=== PATIENT | male | born 1945 | race Caucasian/White ===

== ENCOUNTER 2018-12-21 17:01 | Observation (INO) | payer MEDICARE, OTHER ==
[2018-12-21] MEDS ORDERED: Dicyclomine 10 MG Cap PO ONE (17:35)
[2018-12-21] MEDS ORDERED: Sodium Chloride 0.9% 10 ML Syringe FLUSH PRN (17:35)
[2018-12-21] MEDS ORDERED: Sodium Chloride 0.9% 2.5 ML Syringe FLUSH PRN (17:35)
[2018-12-21] MEDS ORDERED: Sodium Chloride 0.9% 1,000 ML IV ONE (17:35)
--- NOTE | 2018-12-21 17:40 | EDM.PDOC ---
ED HPI GENERAL MEDICAL PROBLEM - General Chief Complaint: Gastrointestinal Problem Stated Complaint: PASSING BLOOD Time Seen by Provider: 12/21/18 17:25 - History of Present Illness INITIAL COMMENTS - FREE TEXT/NARRATIVE: HISTORY AND PHYSICAL: History of present illness: The patient is a 73-year-old male with a history of hyperlipidemia hypertension and presents with 5 episodes of diarrhea that started approximately 4 hours ago. The patient says that he also has a history of prostate cancer which is in remission as well as a pacemaker and was placed on doxycycline 100 mg twice a day by his provider at home on December 15 for a URI. He says he's been doing well with that antibiotic and today he flew in to town and had a formed bowel movement which was somewhat hard and then subsequently had a soft mushy bowel movement and then and even softer bowel movement followed by 2 watery stools. Initially the bowel movements were normal in color and then on the last 2 watery stools there was pink blood seen. He has not been passing black or tarry stools and no blood frankly or blood clots. He has no blood in his underwear. He has no GI history and had a colonoscopy approximately 10 years ago that was normal. He has no history of hemorrhoids and he says that when he was having these bowel movements he was not having any abdominal pain nor any rectal or anal pain. He has no nausea vomiting fevers or chills no flank pain or urinary issues. He is concerned because he had an admission in the past due to diarrhea and did not want to get behind. He is not lightheaded or dizzy and has had no feelings like he is going to pass out but he says that in the past when he was admitted for the diarrhea he did have a syncopal event and he is scared that will happen again. He is eating and drinking normally Review of systems: As per history of present illness and below otherwise all systems reviewed and negative. Past medical history: As per history of present illness and as reviewed below otherwise noncontributory. Surgical history: As per history of present illness and as reviewed below otherwise noncontributory. Social history: No reported history of drug or alcohol abuse. Family history: As per history of present illness and as reviewed below otherwise noncontributory. Physical exam: General: Well-developed well-nourished man who is nontoxic and moves easily in the ED. Vital signs are noted by me HEENT: Atraumatic, normocephalic, negative for conjunctival pallor or scleral icterus, mucous membranes moist, throat clear, neck supple, nontender, trachea midline. Lungs: Clear to auscultation, breath sounds equal bilaterally, chest nontender. Heart: S1S2, regular, negative for clicks, rubs, or JVD. Abdomen: Soft, nondistended, nontender. Negative for masses or hepatosplenomegaly. Negative for costovertebral tenderness. Pelvis: Stable nontender. Genitourinary: Deferred. Rectal: There is some perianal erythema but no lesions or fissures no masses and on digital exam there is scant stool in the vault which is light brown and mucousy but is Hemoccult positive. Extremities: Atraumatic, negative for cords or calf pain. Neurovascular unremarkable. Neuro: Awake, alert, oriented. Cranial nerves II through XII unremarkable. Cerebellum unremarkable. Motor and sensory unremarkable throughout. Exam nonfocal. Diagnostics: CBC CMP amylase lipase magnesium level lactic acid stool for C. difficile and culture Therapeutics: IV fluids Bentyl Levaquin and Flagyl maintenance IV fluids 1840: As was discussed with Dr. Rosenthal who would like me to treat him as an infectious colitis with Levaquin and Flagyl and maintenance IV fluids. I discussed with the patient his testing results and my concerns and he is agreeable to an observation admission Impression: Diarrhea, mild dehydration, rule out colitis Definitive disposition and diagnosis as appropriate pending reevaluation and review of above. - Related Data Allergies Allergy/AdvReac Type Severity Reaction Status Date / Time sulfasalazine [Sulfasalazine] Allergy Rash Verified 12/21/18 17:16 Home Meds: Home Meds Cholecalciferol (Vitamin D3) [Vitamin D3] 5,000 unit PO DAILY 03/12/14 [History] Lisinopril [Prinivil] 40 mg PO DAILY 03/12/14 [History] Simvastatin [Zocor] 40 mg PO BEDTIME 03/12/14 [History] amLODIPine [Norvasc] 10 mg PO DAILY 03/12/14 [History] Ciprofloxacin HCl [Cipro] 500 mg PO BID #14 tablet 03/14/14 [Rx] Aspirin 81 mg PO ONCALL 02/22/15 [History] Clopidogrel [Plavix] 75 mg PO DAILY 02/22/15 [History] atorvaSTATin [Lipitor] 40 mg PO BEDTIME 02/22/15 [History] cloNIDine HCl [Clonidine HCl ER] 0.2 mg PO DAILY 02/22/15 [History] Benzonatate 100 mg PO 12/21/18 [History] Doxycycline Monohydrate 100 mg PO 12/21/18 [History] Past Medical History Cardiovascular History: Reports: High Cholesterol, Hypertension Other Cardiovascular History: 2 stents Respiratory History: Reports: None Genitourinary History: Reports: None Musculoskeletal History: Reports: None Neurological History: Reports: None Endocrine/Metabolic History: Reports: Diabetes, Type II Hematologic History: Reports: None Immunologic History: Reports: None Oncologic (Cancer) History: Reports: None Dermatologic History: Reports: None - Infectious Disease History Infectious Disease History: Reports: None - Past Surgical History Head Surgeries/Procedures: Reports: None GI Surgical History: Reports: Cholecystectomy Social & Family History - Family History Family Medical History: Noncontributory - Tobacco Use Smoking Status *Q: Never Smoker Second Hand Smoke Exposure: No - Caffeine Use Caffeine Use: Reports: None - Recreational Drug Use Recreational Drug Use: No ED ROS GENERAL - Review of Systems Review Of Systems: ROS reveals no pertinent complaints other than HPI. ED EXAM, GENERAL - Physical Exam Exam: See Below (see dictation) Course - Vital Signs Last Recorded V/S: Last Vital Signs Temp 36.6 C 12/21/18 17:27 Pulse 79 12/21/18 17:27 Resp 16 12/21/18 17:27 BP 125/62 12/21/18 17:27 Pulse Ox 93 L 12/21/18 17:27 - Orders/Labs/Meds Orders: Active Orders 24 hr Category Date Time Status Patient Status [ADT] Stat ADT 12/21/18 18:50 Ordered Cardiac Monitoring [RC] . DIRECTED Care 12/21/18 17:34 Active Oxygen Therapy, ED [RC] ASDIRECTED Care 12/21/18 17:34 Active Pulse Oximetry [RC] ASDIRECTED Care 12/21/18 17:34 Active CULTURE STOOL + CAMPY+SHIGATOX [RM] Stat Lab 12/21/18 17:45 Results Sodium Chloride 0.9% @ 125 MLS/HR (1,000ml) Med 12/21/18 19:00 Ordered Sodium Chloride 0.9% [Normal Saline] 1,000 ml IV ASDIRECTED Sodium Chloride 0.9% [Saline Flush] Med 12/21/18 17:35 Active 10 ml FLUSH ASDIRECTED PRN Sodium Chloride 0.9% [Saline Flush] Med 12/21/18 17:35 Active 2.5 ml FLUSH ASDIRECTED PRN metroNIDAZOLE/Normal Saline [Flagyl 500 MG in NS 100 ML Med 12/21/18 18:52 Ordered ] 500 mg Premix Bag 1 bag IV ONETIME Isolation [COMM] Stat Oth 12/21/18 17:35 Ordered Saline Lock Insert [OM.PC] Stat Ot 12/21/18 17:34 Ordered Medication Orders Sodium Chloride (Normal Saline) 1,000 mls @ 125 mls/hr IV ASDIRECTED JOHAN Metronidazole 500 mg/ Premix 100 mls @ 100 mls/hr IV ONETIME ONE Stop: 12/21/18 19:51 Sodium Chloride (Saline Flush) 10 ml FLUSH ASDIRECTED PRN PRN Reason: Keep Vein Open Last Admin: 12/21/18 17:43 Dose: 10 ml Sodium Chloride (Saline Flush) 2.5 ml FLUSH ASDIRECTED PRN PRN Reason: Keep Vein Open Last Admin: 12/21/18 17:43 Dose: 2.5 ml Labs: Laboratory Tests 12/21/18 12/21/18 12/21/18 Range/Units 17:20 17:20 17:20 WBC 15.23 H (4.0-11.0) K/uL RBC 5.17 (4.50-5.90) M/uL Hgb 14.3 (13.0-17.0) g/dL Hct 43.3 (38.0-50.0) % MCV 83.8 (80.0-98.0) fL MCH 27.7 (27.0-32.0) pg MCHC 33.0 (31.0-37.0) g/dL RDW Std Deviation 48.8 (28.0-62.0) fl RDW Coeff of Zandra 16 H (11.0-15.0) % Plt Count 253 (150-400) K/uL MPV 9.10 (7.40-12.00) fL Neut % (Auto) 86.9 H (48.0-80.0) % Lymph % (Auto) 7.6 L (16.0-40.0) % Holmes % (Auto) 4.9 (0.0-15.0) % Eos % (Auto) 0.5 (0.0-7.0) % Baso % (Auto) 0.1 (0.0-1.5) % Neut # (Auto) 13.2 H (1.4-5.7) K/uL Lymph # (Auto) 1.2 (0.6-2.4) K/uL Holmes # (Auto) 0.7 (0.0-0.8) K/uL Eos # (Auto) 0.1 (0.0-0.7) K/uL Baso # (Auto) 0.0 (0.0-0.1) K/uL Nucleated RBC % 0.0 /100WBC Nucleated RBCs # 0 K/uL Lactate 2.1 H (0.20-2.00) mmol/L Sodium 141 (136-148) mmol/L Potassium 4.5 (3.5-5.1) mmol/L Chloride 106 (98-107) mmol/L Carbon Dioxide 22.1 (21.0-32.0) mmol/L BUN 30 H (7.0-18.0) mg/dL Creatinine 1.6 H (0.8-1.3) mg/dL Est Cr Clr Drug Dosing TNP Estimated GFR (MDRD) 42.3 ml/min Glucose 177 H (74-106) mg/dL Calcium 9.3 (8.5-10.1) mg/dL Magnesium (1.8-2.4) mg/dL Total Bilirubin 0.7 (0.2-1.0) mg/dL AST 35 (15-37) IU/L ALT 56 (14-63) IU/L Alkaline Phosphatase 96 (46-116) U/L Total Protein 7.6 (6.4-8.2) g/dL Albumin 3.7 (3.4-5.0) g/dL Globulin 3.9 (2.6-4.0) g/dL Albumin/Globulin Ratio 0.9 (0.9-1.6) Amylase 80 (25-115) U/L Lipase 151 (73-393) U/L 12/21/18 Range/Units 17:20 WBC (4.0-11.0) K/uL RBC (4.50-5.90) M/uL Hgb (13.0-17.0) g/dL Hct (38.0-50.0) % MCV (80.0-98.0) fL MCH (27.0-32.0) pg MCHC (31.0-37.0) g/dL RDW Std Deviation (28.0-62.0) fl RDW Coeff of Zandra (11.0-15.0) % Plt Count (150-400) K/uL MPV (7.40-12.00) fL Neut % (Auto) (48.0-80.0) % Lymph % (Auto) (16.0-40.0) % Holmes % (Auto) (0.0-15.0) % Eos % (Auto) (0.0-7.0) % Baso % (Auto) (0.0-1.5) % Neut # (Auto) (1.4-5.7) K/uL Lymph # (Auto) (0.6-2.4) K/uL Holmes # (Auto) (0.0-0.8) K/uL Eos # (Auto) (0.0-0.7) K/uL Baso # (Auto) (0.0-0.1) K/uL Nucleated RBC % /100WBC Nucleated RBCs # K/uL Lactate (0.20-2.00) mmol/L Sodium (136-148) mmol/L Potassium (3.5-5.1) mmol/L Chloride (98-107) mmol/L Carbon Dioxide (21.0-32.0) mmol/L BUN (7.0-18.0) mg/dL Creatinine (0.8-1.3) mg/dL Est Cr Clr Drug Dosing Estimated GFR (MDRD) ml/min Glucose (74-106) mg/dL Calcium (8.5-10.1) mg/dL Magnesium 2.0 (1.8-2.4) mg/dL Total Bilirubin (0.2-1.0) mg/dL AST (15-37) IU/L ALT (14-63) IU/L Alkaline Phosphatase (46-116) U/L Total Protein (6.4-8.2) g/dL Albumin (3.4-5.0) g/dL Globulin (2.6-4.0) g/dL Albumin/Globulin Ratio (0.9-1.6) Amylase (25-115) U/L Lipase (73-393) U/L Meds: Medications Generic Name Dose Route Start Last Admin Trade Name Freq PRN Reason Stop Dose Admin Sodium Chloride 1,000 mls @ 125 mls/hr 12/21/18 19:00 Normal Saline IV ASDIRECTED JOHAN Metronidazole 500 mg/ Premix 100 mls @ 100 mls/hr 12/21/18 18:52 IV 12/21/18 19:51 ONETIME ONE Sodium Chloride 10 ml 12/21/18 17:35 12/21/18 17:43 Saline Flush FLUSH 10 ml ASDIRECTED PRN Administration Keep Vein Open Sodium Chloride 2.5 ml 12/21/18 17:35 12/21/18 17:43 Saline Flush FLUSH 2.5 ml ASDIRECTED PRN Administration Keep Vein Open Discontinued Medications Generic Name Dose Route Start Last Admin Trade Name Freq PRN Reason Stop Dose Admin Dicyclomine HCl 20 mg 12/21/18 17:35 12/21/18 17:48 Bentyl PO 12/21/18 17:36 20 mg ONETIME ONE Administration Sodium Chloride 1,000 mls @ 999 mls/hr 12/21/18 17:35 12/21/18 17:43 Normal Saline IV 12/21/18 18:35 999 mls/hr STAT ONE Administration Levofloxacin 500 mg 12/21/18 18:52 Levaquin PO 12/21/18 18:53 ONETIME ONE Departure - Departure Time of Disposition: 18:55 Disposition: Refer to Observation Condition: Good Clinical Impression: Diarrhea, Dehydration - Discharge Information Referrals: PCP,None [Primary Care Provider] - Forms: ED Department Discharge - My Orders Last 24 Hours: My Active Orders 12/21/18 17:34 Cardiac Monitoring [RC] . DIRECTED Oxygen Therapy, ED [RC] ASDIRECTED Pulse Oximetry [RC] ASDIRECTED Saline Lock Insert [OM.PC] Stat 12/21/18 17:35 Sodium Chloride 0.9% [Saline Flush] 10 ml FLUSH ASDIRECTED PRN Sodium Chloride 0.9% [Saline Flush] 2.5 ml FLUSH ASDIRECTED PRN Isolation [COMM] Stat 12/21/18 17:45 CULTURE STOOL + CAMPY+SHIGATOX [RM] Stat 12/21/18 18:50 Patient Status [ADT] Stat 12/21/18 18:52 metroNIDAZOLE/Normal Saline [Flagyl 500 MG in NS 100 ML] 500 mg Premix Bag 1 bag IV ONETIME 12/21/18 19:00 Sodium Chloride 0.9% @ 125 MLS/HR (1,000ml) Sodium Chloride 0.9% [Normal Saline ] 1,000 ml IV ASDIRECTED - Assessment/Plan Last 24 Hours: My Active Orders 12/21/18 17:34 Cardiac Monitoring [RC] . DIRECTED Oxygen Therapy, ED [RC] ASDIRECTED Pulse Oximetry [RC] ASDIRECTED Saline Lock Insert [OM.PC] Stat 12/21/18 17:35 Sodium Chloride 0.9% [Saline Flush] 10 ml FLUSH ASDIRECTED PRN Sodium Chloride 0.9% [Saline Flush] 2.5 ml FLUSH ASDIRECTED PRN Isolation [COMM] Stat 12/21/18 17:45 CULTURE STOOL + CAMPY+SHIGATOX [RM] Stat 12/21/18 18:50 Patient Status [ADT] Stat 12/21/18 18:52 metroNIDAZOLE/Normal Saline [Flagyl 500 MG in NS 100 ML] 500 mg Premix Bag 1 bag IV ONETIME 12/21/18 19:00 Sodium Chloride 0.9% @ 125 MLS/HR (1,000ml) Sodium Chloride 0.9% [Normal Saline ] 1,000 ml IV ASDIRECTED
[2018-12-21 18:17] LABS: CHLORIDE,CL 106 mmol/L (98-107); SODIUM,NA 141 mmol/L (136-148)
[2018-12-21] MEDS ORDERED: metroNIDAZOLE/Normal Saline 500 MG in Premix Bag 1 BAG IV ONE (18:52)
[2018-12-21] MEDS ORDERED: Levofloxacin 500 MG Tab PO ONE (18:52)
[2018-12-21] MEDS ORDERED: Sodium Chloride 0.9% 1,000 ML IV SCH (19:00)
[2018-12-21] MEDS: Sodium Chloride 0.9% 1,000 ML IV SCH (20:30)
[2018-12-21] MEDS ORDERED: oxyCODONE 5 MG Tab PO PRN (20:31)
[2018-12-21] MEDS ORDERED: Acetaminophen 325 MG Tab PO PRN (20:31)
[2018-12-22] MEDS: Sodium Chloride 0.9% 1,000 ML IV SCH (06:05)
--- NOTE | 2018-12-22 07:05 | PCM.HP ---
H&P History of Present Illness - General Date of Service: 12/22/18 Admit Problem/Dx: Admission Diagnosis/Problem Admission Diagnosis/Problem Diarrhea, dehydration Source of Information: Patient, RN Notes Reviewed - History of Present Illness Initial Comments - Free Text/Narative: The patient is a 73-year-old gentleman who had been admitted secondary to diarrhea and dehydration. The patient has traveled from [place] and had been on doxycycline. The patient says that he has had improvement in his diarrhea. The patient is essentially denied any nausea or vomiting. He normally lives in [place] and stays here for a couple of months out of the year. The patient has denied any abdominal pain. He's had no nausea vomiting to come previous. No fever or chills. In the emergency department the patient had a test that was negative for C. difficile colitis and Campylobacter. This history and physical will also count is the patient's discharge summary. The patient also feels like he can go home today. Onset of Symptoms: Reports: Sudden Duration of Symptoms: Reports: Hour(s): Location: Reports: Abdomen Improves with: Reports: None Worsens with: Reports: None Context: Reports: Sick Contact, Travel Associated Symptoms: Reports: No Other Symptoms - Related Data Allergies/Adverse Reactions: Allergies Allergy/AdvReac Type Severity Reaction Status Date / Time sulfasalazine [Sulfasalazine] Allergy Rash Verified 12/21/18 20:21 Home Medications: Home Meds Cholecalciferol (Vitamin D3) [Vitamin D3] 5,000 unit PO DAILY 03/12/14 [History] Lisinopril [Prinivil] 40 mg PO DAILY 03/12/14 [History] Simvastatin [Zocor] 40 mg PO DAILY 03/12/14 [History] amLODIPine [Norvasc] 10 mg PO DAILY 03/12/14 [History] Aspirin 81 mg PO DAILY 02/22/15 [History] cloNIDine HCl [Clonidine HCl ER] 0.2 mg PO DAILY 02/22/15 [History] Lactobac Cmb #3/Fos/Pantethine [Probiotic & Acidophilus] 1 each PO DAILY #30 capsule 12/22/18 [Rx] metroNIDAZOLE [Flagyl] 375 mg PO Q8H #15 capsule 12/22/18 [Rx] Past Medical History HEENT History: Reports: Cataract Cardiovascular History: Reports: High Cholesterol, Hypertension, Pacemaker, Stents Other Cardiovascular History: 2 stents Respiratory History: Reports: None Gastrointestinal History: Reports: Hiatal Hernia Genitourinary History: Reports: Prostate Disorder, Other (See Below) Other Genitourinary History: "seeds" implanted in prostate for cancer Musculoskeletal History: Reports: Arthritis, Gout Neurological History: Reports: None Psychiatric History: Reports: None Endocrine/Metabolic History: Reports: Diabetes, Type II Hematologic History: Reports: None Immunologic History: Reports: None Oncologic (Cancer) History: Reports: Prostate Dermatologic History: Reports: None - Infectious Disease History Infectious Disease History: Reports: None - Past Surgical History Head Surgeries/Procedures: Reports: None HEENT Surgical History: Reports: Cataract Surgery, Tonsillectomy Cardiovascular Surgical History: Reports: Coronary Artery Stent GI Surgical History: Reports: Cholecystectomy Musculoskeletal Surgical History: Reports: Knee Replacement Social & Family History - Family History Family Medical History: Noncontributory - Tobacco Use Smoking Status *Q: Never Smoker Second Hand Smoke Exposure: No - Caffeine Use Caffeine Use: Reports: None - Recreational Drug Use Recreational Drug Use: No - Living Situation & Occupation Living situation: Reports: , with Spouse Occupation: Retired H&P Review of Systems - Review of Systems: Review Of Systems: See Below General: Reports: No Symptoms HEENT: Reports: No Symptoms Pulmonary: Reports: No Symptoms Cardiovascular: Reports: No Symptoms Gastrointestinal: Reports: Diarrhea. Denies: Hematemesis, Hematochezia Genitourinary: Reports: No Symptoms Musculoskeletal: Reports: No Symptoms Skin: Reports: No Symptoms Psychiatric: Reports: No Symptoms Neurological: Reports: No Symptoms Hematologic/Lymphatic: Reports: No Symptoms Immunologic: Reports: No Symptoms Exam - Exam Exam: See Below - Vital Signs Vital Signs: Last Vital Signs Temp 36.3 C 12/22/18 03:45 Pulse 74 12/22/18 03:45 Resp 18 12/22/18 03:45 BP 174/70 H 12/22/18 03:45 Pulse Ox 98 12/22/18 03:45 Weight: 91.807 kg - Exam Quality Assessment: No: Supplemental Oxygen General: Alert, Oriented, Cooperative, Mild Distress HEENT: Conjunctiva Clear, EACs Clear, EOMI, Hearing Intact, Mucosa Moist & [place] , Nares Patent, Posterior Pharynx Clear, PERRLA Neck: Supple, Trachea Midline, 2 Lungs: Clear to Auscultation, Normal Respiratory Effort Cardiovascular: Regular Rate, Regular Rhythm GI/Abdominal Exam: Normal Bowel Sounds, Soft, Non-Tender, No Distention Rectal (Males) Exam: Deferred Back Exam: Normal Inspection, Full Range of Motion, NT Extremities: Normal Inspection, Normal Range of Motion, Non-Tender, No Pedal Edema Skin: Warm, Dry, Intact Neurological: Cranial Nerves Intact Neuro Extensive - Mental Status: Alert, Oriented x3, Normal Cognition Neuro Extensive - Motor, Sensory, Reflexes: CN II-XII Intact Psychiatric: Alert, Normal Affect, Normal Mood - Patient Data Lab Results Last 24 hrs: Laboratory Results - last 24 hr 12/21/18 12/21/18 12/21/18 Range/Units 17:20 17:20 17:20 WBC 15.23 H (4.0-11.0) K/uL RBC 5.17 (4.50-5.90) M/uL Hgb 14.3 (13.0-17.0) g/dL Hct 43.3 (38.0-50.0) % MCV 83.8 (80.0-98.0) fL MCH 27.7 (27.0-32.0) pg MCHC 33.0 (31.0-37.0) g/dL RDW Std Deviation 48.8 (28.0-62.0) fl RDW Coeff of Zandra 16 H (11.0-15.0) % Plt Count 253 (150-400) K/uL MPV 9.10 (7.40-12.00) fL Neut % (Auto) 86.9 H (48.0-80.0) % Lymph % (Auto) 7.6 L (16.0-40.0) % [place] % (Auto) 4.9 (0.0-15.0) % Eos % (Auto) 0.5 (0.0-7.0) % Baso % (Auto) 0.1 (0.0-1.5) % Neut # (Auto) 13.2 H (1.4-5.7) K/uL Lymph # (Auto) 1.2 (0.6-2.4) K/uL [place] # (Auto) 0.7 (0.0-0.8) K/uL Eos # (Auto) 0.1 (0.0-0.7) K/uL Baso # (Auto) 0.0 (0.0-0.1) K/uL Nucleated RBC % 0.0 /100WBC Nucleated RBCs # 0 K/uL Lactate 2.1 H (0.20-2.00) mmol/L Sodium 141 (136-148) mmol/L Potassium 4.5 (3.5-5.1) mmol/L Chloride 106 (98-107) mmol/L Carbon Dioxide 22.1 (21.0-32.0) mmol/L BUN 30 H (7.0-18.0) mg/dL Creatinine 1.6 H (0.8-1.3) mg/dL Est Cr Clr Drug Dosing TNP Estimated GFR (MDRD) 42.3 ml/min Glucose 177 H (74-106) mg/dL Calcium 9.3 (8.5-10.1) mg/dL Magnesium (1.8-2.4) mg/dL Total Bilirubin 0.7 (0.2-1.0) mg/dL AST 35 (15-37) IU/L ALT 56 (14-63) IU/L Alkaline Phosphatase 96 (46-116) U/L Total Protein 7.6 (6.4-8.2) g/dL Albumin 3.7 (3.4-5.0) g/dL Globulin 3.9 (2.6-4.0) g/dL Albumin/Globulin Ratio 0.9 (0.9-1.6) Amylase 80 (25-115) U/L Lipase 151 (73-393) U/L 12/21/18 12/22/18 12/22/18 Range/Units 17:20 03:49 03:49 WBC 12.88 H (4.0-11.0) K/uL RBC 4.91 (4.50-5.90) M/uL Hgb 13.6 (13.0-17.0) g/dL Hct 41.0 (38.0-50.0) % MCV 83.5 (80.0-98.0) fL MCH 27.7 (27.0-32.0) pg MCHC 33.2 (31.0-37.0) g/dL RDW Std Deviation 48.5 (28.0-62.0) fl RDW Coeff of Zandra 16 H (11.0-15.0) % Plt Count 243 (150-400) K/uL MPV 9.20 (7.40-12.00) fL Neut % (Auto) 71.7 (48.0-80.0) % Lymph % (Auto) 19.1 (16.0-40.0) % [place] % (Auto) 7.8 (0.0-15.0) % Eos % (Auto) 1.2 (0.0-7.0) % Baso % (Auto) 0.2 (0.0-1.5) % Neut # (Auto) 9.2 H (1.4-5.7) K/uL Lymph # (Auto) 2.5 H (0.6-2.4) K/uL [place] # (Auto) 1.0 H (0.0-0.8) K/uL Eos # (Auto) 0.2 (0.0-0.7) K/uL Baso # (Auto) 0.0 (0.0-0.1) K/uL Nucleated RBC % 0.0 /100WBC Nucleated RBCs # 0 K/uL Lactate (0.20-2.00) mmol/L Sodium 142 (136-148) mmol/L Potassium 4.1 (3.5-5.1) mmol/L Chloride 109 H (98-107) mmol/L Carbon Dioxide 20.9 L (21.0-32.0) mmol/L BUN 25 H (7.0-18.0) mg/dL Creatinine 1.3 (0.8-1.3) mg/dL Est Cr Clr Drug Dosing 57.08 Estimated GFR (MDRD) 53.8 ml/min Glucose 101 (74-106) mg/dL Calcium 8.7 (8.5-10.1) mg/dL Magnesium 2.0 1.9 (1.8-2.4) mg/dL Total Bilirubin (0.2-1.0) mg/dL AST (15-37) IU/L ALT (14-63) IU/L Alkaline Phosphatase (46-116) U/L Total Protein (6.4-8.2) g/dL Albumin (3.4-5.0) g/dL Globulin (2.6-4.0) g/dL Albumin/Globulin Ratio (0.9-1.6) Amylase (25-115) U/L Lipase (73-393) U/L 12/22/18 Range/Units 03:49 WBC (4.0-11.0) K/uL RBC (4.50-5.90) M/uL Hgb (13.0-17.0) g/dL Hct (38.0-50.0) % MCV (80.0-98.0) fL MCH (27.0-32.0) pg MCHC (31.0-37.0) g/dL RDW Std Deviation (28.0-62.0) fl RDW Coeff of Zandra (11.0-15.0) % Plt Count (150-400) K/uL MPV (7.40-12.00) fL Neut % (Auto) (48.0-80.0) % Lymph % (Auto) (16.0-40.0) % [place] % (Auto) (0.0-15.0) % Eos % (Auto) (0.0-7.0) % Baso % (Auto) (0.0-1.5) % Neut # (Auto) (1.4-5.7) K/uL Lymph # (Auto) (0.6-2.4) K/uL [place] # (Auto) (0.0-0.8) K/uL Eos # (Auto) (0.0-0.7) K/uL Baso # (Auto) (0.0-0.1) K/uL Nucleated RBC % /100WBC Nucleated RBCs # K/uL Lactate 0.8 (0.20-2.00) mmol/L Sodium (136-148) mmol/L Potassium (3.5-5.1) mmol/L Chloride (98-107) mmol/L Carbon Dioxide (21.0-32.0) mmol/L BUN (7.0-18.0) mg/dL Creatinine (0.8-1.3) mg/dL Est Cr Clr Drug Dosing Estimated GFR (MDRD) ml/min Glucose (74-106) mg/dL Calcium (8.5-10.1) mg/dL Magnesium (1.8-2.4) mg/dL Total Bilirubin (0.2-1.0) mg/dL AST (15-37) IU/L ALT (14-63) IU/L Alkaline Phosphatase (46-116) U/L Total Protein (6.4-8.2) g/dL Albumin (3.4-5.0) g/dL Globulin (2.6-4.0) g/dL Albumin/Globulin Ratio (0.9-1.6) Amylase (25-115) U/L Lipase (73-393) U/L Result Diagrams: 12/22/18 03:49 12/22/18 03:49 Alec Results Last 24 hrs: Microbiology 12/21/18 17:45 Stool for WBCs - Final Stool / Feces POSITIVE FOR WBC'S REFERENCE RANGE: NO WBC SEEN 12/21/18 17:45 Clostridium difficile Toxin A & B - Final Stool / Feces Negative for C.Diff Toxin/AG REFERENCE RANGE: NEGATIVE 12/21/18 17:45 Campylobacter Antigen Assay - Final Stool / Feces NEGATIVE CAMPYLOBACTER AG REFERENCE RANGE: NEGATIVE - Problem List (1) Diarrhea SNOMED Code(s): 42133908 ICD Code: R19.7 - DIARRHEA, UNSPECIFIED Status: Resolved Priority: High (2) Diabetes mellitus type 2, diet-controlled SNOMED Code(s): 78191289, 088857097, 451152405 ICD Code: E11.9 - TYPE 2 DIABETES MELLITUS WITHOUT COMPLICATIONS Status: Chronic Priority: High (3) Hypertension SNOMED Code(s): 59663206 ICD Code: I10 - ESSENTIAL (PRIMARY) HYPERTENSION Status: Chronic Priority : High Qualifiers: Hypertension type: essential hypertension Qualified Code(s): I10 - Essential (primary) hypertension (4) Dehydration SNOMED Code(s): 39816468 ICD Code: E86.0 - DEHYDRATION Status: Resolved Priority: High Problem List Initiated/Reviewed/Updated: Yes Orders Last 24hrs: Active Orders 24 hr Category Date Time Status Patient Status [ADT] Stat ADT 12/21/18 18:50 Active Cardiac Monitoring [RC] . DIRECTED Care 12/21/18 17:34 Active Regular Diet [DIET] Diet 12/22/18 Breakfast Active CULTURE STOOL + CAMPY+SHIGATOX [RM] Stat Lab 12/21/18 17:45 Results Acetaminophen [Tylenol] Med 12/21/18 20:31 Active 650 mg PO Q4H PRN Aspirin Med 12/22/18 09:00 Ordered 81 mg PO DAILY Cholecalciferol (Vitamin D3) [Vitamin D3] Med 12/22/18 09:00 Ordered 5,000 unit PO DAILY Lisinopril [Prinivil] Med 12/22/18 09:00 Ordered 40 mg PO DAILY Simvastatin [Zocor] Med 12/22/18 09:00 Ordered 40 mg PO DAILY Sodium Chloride 0.9% [Normal Saline] 1,000 ml Med 12/21/18 20:30 Active IV ASDIRECTED Sodium Chloride 0.9% [Saline Flush] Med 12/21/18 17:35 Active 10 ml FLUSH ASDIRECTED PRN Sodium Chloride 0.9% [Saline Flush] Med 12/21/18 17:35 Active 2.5 ml FLUSH ASDIRECTED PRN amLODIPine Med 12/22/18 09:00 Ordered 10 mg PO DAILY cloNIDine HCl [Clonidine HCl ER] Med 12/22/18 09:00 Ordered 0.2 mg PO DAILY oxyCODONE Med 12/21/18 20:31 Active 5 mg PO Q4H PRN Isolation [COMM] Stat Oth 12/21/18 17:35 Ordered Saline Lock Insert [OM.PC] Stat Oth 12/21/18 17:34 Ordered Medication Orders Acetaminophen (Tylenol) 650 mg PO Q4H PRN PRN Reason: Mild pain or fever. Sodium Chloride (Normal Saline) 1,000 mls @ 75 mls/hr IV ASDIRECTED JOHAN Last Admin: 12/22/18 06:05 Dose: 75 mls/hr Infusion: 12/22/18 06:05 Dose: 75 mls/hr Admin: 12/21/18 20:30 Dose: 75 mls/hr Oxycodone HCl (Oxycodone) 5 mg PO Q4H PRN PRN Reason: Pain (moderate 4-6) Sodium Chloride (Saline Flush) 10 ml FLUSH ASDIRECTED PRN PRN Reason: Keep Vein Open Last Admin: 12/21/18 17:43 Dose: 10 ml Sodium Chloride (Saline Flush) 2.5 ml FLUSH ASDIRECTED PRN PRN Reason: Keep Vein Open Last Admin: 12/21/18 17:43 Dose: 2.5 ml Assessment/Plan Comment:: The patient is a 73-year-old gentleman who is having issues upon admission with diarrhea. The patient had stool sample for WBCs which was positive. This is likely an infectious colitis that has been improving over the past couple of days. The patient was also kept on IV fluids to help with his dehydration. This had improved significantly overnight. The patient was monitored overnight and no incidences were noted. The patient's diarrhea had resolved. The patient was kept on his antihypertensives although his blood pressure had remained elevated at 178/77 mmHg and the patient was advised of this. The patient's vital signs were otherwise stable and normal. The patient initially had a white blood cell count of 15,000 on admission and this had improved to 12,000. Lactate was elevated initially at 2.1 and this should normalize with the IV fluids. This did not represent picture of sepsis. The patient's lactate was elevated secondary to his dehydration from the diarrhea. He also had creatinine elevated at 1.6 which had normalized with fluids. His EGFR had also improved. The patient 's cultures for Shigella and Salmonella were also negative. The patient also did not have any evidence of Escherichia coli 0157 isolated. Because of the patient's fecal white blood cells it was recommended that he be discharged on Flagyl 300 mg by mouth every 8 hours as well as probiotics. Patient is also to follow-up with his primary care physician. The patient had been tolerating his diet and he is recommended to continue on his current diet. He is also to have activity as tolerated. The patient has been hemodynamically stable and asymptomatic and he has been discharged from acute hospitalization with the recommendations listed above.
[2018-12-22 08:07] VITALS: BP 178/77
[2018-12-22] MEDS ORDERED: Aspirin 81 MG Tab.Chew PO SCH (09:00)
[2018-12-22] MEDS ORDERED: amLODIPine 5 MG Tab PO SCH (09:00)
[2018-12-22] MEDS ORDERED: Cholecalciferol (Vitamin D3) 1,000 Unit Tab PO SCH (09:00)
[2018-12-22] MEDS ORDERED: Lisinopril 10 MG Tab PO SCH (09:00)
[2018-12-22] MEDS ORDERED: CLONIDINE HCL 0.2 MG PO SCH (09:00)
[2018-12-22] MEDS ORDERED: Simvastatin 40 MG Tab PO SCH (21:00)
== END 2018-12-22 09:35 | disposition home or self-care (01) ==
LOC: MW.ED 17:01 → MW.MS 19:31
PROVIDERS: ADMIT Internal Medicine; ATTEND Internal Medicine
DX: R19.7 Diarrhea, unspecified (principal); E11.8 Type 2 diabetes mellitus with unspecified complications; I10 Essential (primary) hypertension; E78.00 Pure hypercholesterolemia, unspecified; Z95.0 Presence of cardiac pacemaker; Z79.82 Long term (current) use of aspirin; Z79.899 Other long term (current) drug therapy; Z88.2 Allergy status to sulfonamides
CPT/HCPCS: 36415; 80048; 80053; 82150; 83605; 83630; 83690; 83735; 85025; 87046; 87324; 87899; 96361; 96365; 99284; A9270; G0378; J3490; J7040